=== PATIENT | male | born 1980 | race Caucasian/White ===

== ENCOUNTER 2019-08-26 06:40 | Outpatient (CLI) | payer OTHER, SELFPAY ==
--- NOTE | ~2019-08-26 | MR_ITS ---
EXAMINATION: MR ankle LT wo con DATE: 08/26/2019 08:00 INDICATION: Peroneal tendinitis with pop along the lateral left ankle 2 months prior. TECHNIQUE: Magnetic resonance imaging (MRI) of the left ankle was performed without intravenous contr ast. Sequences included sagittal, coronal, and axial proton-density weighted fast spin echo without a nd with fat saturation. COMPARISON: None. FINDINGS: Medial ankle ligaments: Deep and superficial deltoid ligaments as well as the spring ligament are normal. Lateral ankle ligaments: The anterior and posterior inferior tibiofibular ligaments are normal. The anterior talofibular, calc aneofibular and posterior talofibular ligaments are normal. Tendons: Achilles tendon is normal. Small amount of fluid in the peroneal tendon sheath consistent with mild t enosynovitis. The peroneus longus tendon is normal. Moderate tendinopathy and longitudinal split tear ing of the peroneus brevis tendon beginning at the level of the retromalleolar groove and extending t o within 3 cm the fifth metatarsal insertion. The tibialis anterior and extensor hallucis longus and extensor digitorum longus tendons are normal. The flexor hallucis longus tendon is normal. Small amou nt of fluid consistent mild tenosynovitis surrounding the normal tibialis posterior and flexor digito rum longus tendons. Plantar fascia: Plantar aponeurosis is normal. Bones/other: Bone alignment is normal. Normal marrow signal throughout. No fracture or pathologic marrow replacing process. Joint spaces are relatively preserved. Fluid: Physiologic amount of fluid in the joint spaces. IMPRESSION: 1. Peroneal tenosynovitis with moderate tendinopathy and longitudinal split tearing of the peroneus b maegan tendon 2. Mild tibialis posterior and flexor digitorum longus tenosynovitis with normal-appearing tendons. Reviewed, dictated and finalized at location A. IMPRESSION: 1. Peroneal tenosynovitis with moderate tendinopathy and longitudinal split tea ring of the peroneus brevis tendon 2. Mild tibialis posterior and flexor digitorum longus tenosynovitis with isai l-appearing tendons.
== END 2019-08-26 06:41 | disposition home or self-care (01) ==
PROVIDERS: PCP Family Medicine; Visit Provider Podiatrist Foot & Ankle Surgery
DX: S86.312A Strain of muscle(s) and tendon(s) of peroneal muscle group at lower leg level, left leg, initial encounter (principal)
CPT/HCPCS: 73721

== ENCOUNTER 2024-05-17 18:00 | Emergency (ER) | payer BC, SELFPAY ==
[2024-05-17] VITALS (8 sets, daily range): BP systolic 125–129; BP diastolic 85–95; PULSE 65–88; RESP 17–24; TEMP 36.8–37.8; O2SAT 95–99
--- NOTE | ~2024-05-17 | CT_ITS ---
EXAMINATION: CT brain & sinus wo con DATE: 05/17/2024 20:26 INDICATION: headache, recent dental infection . TECHNIQUE: Computed tomography (CT) of the head and sinuses was performed without intravenous contras t. The mA was adjusted according to patient size. Iterative reconstruction technique was employed. Th e dose-length product was 832.33 mGy-cm. COMPARISON: None. FINDINGS: No acute intracranial hemorrhage or extra-axial fluid collection. No hydrocephalus, mass, or herniation. No acute ischemic infarct. Unremarkable dural venous sinus attenuation. No acute osseous abnormality. Sinuses: There is normal development and pneumatization of the paranasal sinuses. Left middle turbinate fernanda bullosa. Rightward bowing of the osseous nasal septum with a small osseous spur directed towards the right. Trace bilateral mastoid fluid. Small polyp in the left inferior frontal sinus. Mild mucosal t hickening in the bilateral ethmoid sinuses and maxillary sinuses. The bilateral ostiomeatal complexes are patent. Visualized soft tissues are unremarkable. Dental caries and periodontal disease. IMPRESSION: No acute intracranial process. Mucoperiosteal sinus disease. Dental caries and periodontal disease. Reviewed, dictated and finalized at location K. IC SCHEDULER
--- NOTE | ~2024-05-17 | XR_ITS ---
EXAMINATION: XR chest 1V portable Exam Date/Time: 05/17/2024 19:45 COMPUTER REPAIR INSTRUCTOR HISTORY: fever, myalgias Comparison: 10/24/2006, 10/23/2006. RESULT: Lines, tubes, and devices: None. Lungs and pleura: Mild diffuse reticulonodular opacities with cuffing. Cardiomediastinal silhouette: Stable. Other: No acute osseous or upper abdominal finding. IMPRESSION: Pulmonary opacities may represent bronchiolitis. Consider radiographic follow-up to ensure resolution . Reviewed, dictated and finalized at location K. UTER REPAIR INSTRUCTOR IMPRESSION: Pulmonary opacities may represent bronchiolitis. Consider radiographic follow-u p to ensure resolution.
--- NOTE | ~2024-05-17 | CT_ITS ---
EXAMINATION: CT abdomen pelvis w con DATE: 05/17/2024 20:54 INDICATION: transaminitis, (borderline)febrile TECHNIQUE: Computed tomography (CT) of the abdomen and pelvis was performed with 100 mL Omnipaque-350 intravenous contrast. Automated exposure control and iterative reconstruction technique were employe d. The dose-length product was 549.05 mGy-cm. COMPARISON: None. FINDINGS: Lower thorax: Bibasilar atelectasis. Liver: Normal. Biliary/Gallbladder: Gallbladder is normal. No bile duct dilation. Pancreas: No mass or duct dilation. Spleen: Normal. Adrenals:No mass. Kidneys: No suspicious mass, obstructing stone, or hydronephrosis. GI tract: Moderate distal esophageal and gastric wall edema. No small or large bowel dilation. Normal appendix. Mesentery/Peritoneum: No ascites, mass, or free air. Retroperitoneum: No mass. Pelvis: Pelvic organs are within normal limits. Soft Tissues: Small uncomplicated fat-containing umbilical hernia. Bones: No acute osseous finding. IMPRESSION: Moderate esophagitis/gastritis. Reviewed, dictated and finalized at location K. LING DRUM OPERATOR
--- OUTSIDE RECORDS SUMMARY | 2024-05-17 18:02 | XMS_ITS | Clinical Summary ---
Author Organization [facility] Address [address] [place] [address] Care Team Providers Care School Attendance Secretary Name Role Phone Unavailable Primary Care Provider Unavailabl e Immunizations Immunization Administration Dates Next Due Covid-19 Vaccine, Vector-nr, Rs-ad26, Pf, 0.5 Ml ([facility]) 12/24/2020 Social History Tobacco Use Types Packs/Day Years Used Date Smoking Tobacco: Never Assessed Sex and Gender Information Value Date Recorded Sex Assigned at Not on file Legal Sex Male 3:02 PM CDT Gender Identity Not on file Sexual Orientation Not on file Plan of Treatment Health Maintenance Due Date Last Done Comments Hepatitis C Virus (HCV) Screening 1980 TdaP Immunization 1980 Hepatitis B Immunization (1 of 3 - 19+ 3-dose series) 07/15/1999 Influenza Immunization (#1) 2023 SARS-COV-2 Immunization (2 - 2023- season) 2023 12/24/2020 Respiratory Syncytial Virus (RSV) Immunization (Adult) (1 - 1-dose 75+ series) 07/15/2055 Meningococcal Immunization (ACWY) Aged Out No longer eligible based on patient's age to complete this topic Pneumococcal Immunization Combined Aged Out No longer eligible based on patient's age to complete this topic Rotavirus Immunization Aged Out No lo nger eligible based on patient's age to complete this topic
[2024-05-17 19:02] LABS: Influenza A QL RT-PCR Negative (Negative); Influenza B QL RT-PCR Negative (Negative); RSV RNA, RT-PCR Negative (Negative); SARS-CoV-2 RNA PCR Negative (Negative)
--- NOTE | 2024-05-17 19:03 | ED_ITS ---
HPI - General Adult General Chief complaint: Unspecified Stated complaint: migraines, aches, kidney pain Time Seen by Provider: 05/17/24 18:57 Source: patient and family Mode of arrival: ambulatory Limitations: no limitations History of Present Illness HPI narrative: Patient presents with report of headache, dental pain, and self-reported kidney pain. States he has been having low back pain and he believes this is due to the number of medications he is taking without eating. He has been alternating Tylenol and 800 mg ibuprofen every 5 hours as well as taking amoxicillin 2-3 times per day. The antibiotic was prescribed on either Sunday or Sunday by his dentist and is a 1 week course with plans for him to return to the dentist after treating dental infection for further intervention/procedure. He last took a dose of Tylenol approximately 6 hours ago. He states his brain feels hot , like it is on fire. He is also having left ear pain. Lives with his mother in law and neither of whom are sick. Denies any underlying kidney dysfunction. He is having left-sided maxillary facial pain. His headache is associated with photophobia and phonophobia. He denies any nasal congestion or rhinorrhea. He states he has been altered but describes it as feeling confused when the intense pain takes over. States he has pain the home his bilateral eyes. Denies any rash. Denies any cough, shortness of breath, or diarrhea. His last bowel movement was 4 days ago. He states he had been vomiting but states this is no longer an issue and he does not feel nauseated and rather attributed the emesis to drinking cold water too fast. He states the headache feels like a vice and describes it as being around the top of his head bilaterally as if something fall on it but he denies any trauma or anticoagulation. He also states that it is around his temples and at times around the base of his skull. Related Data Allergies Allergy/AdvReac Type Severity Reaction Status Date / Time No Known Allergies Allergy Unknown Verified 05/17/24 18:15 [facility] Social History Social History (Updated 05/17/24 @ 19:22 by Gladys Lomeli MD) Alcohol intake: never Other substance usage details: Denies IV drug use Living arrangements: with family Additional living arrangements comments: and mother in law Exam 2 Narrative: GENERAL: well-nourished, and in no acute distress. HEAD: Normocephalic, atraumatic. EYES: Non injected, non icteric. PERRL, approximately 3mm bilaterally ENT: Nares clear, no rhinorrhea or epistaxis. Right TM easily visualized. Left TM easily visualized and normal although there is some mild erythema in the external auditory canal. Patient does appear to have dental infection, left upper gums. Mild tenderness to percussion. NECK: Supple. No meningismus. Patient is able to flex and extend neck as well as perform a [id number] motions with full range of motion. CHEST: Speaking in full sentences. No respiratory distress. HEART: Regular rate and rhythm. ABDOMEN: Soft, nondistended. : CVA tenderness bilaterally though R > L. EXTREMITIES: Normal range of motion. No lower extremity edema. Moves all extremities. SKIN: Patient feels Warm to the touch, dry, no rash on exposed skin (and none on legs when they are exposed). NEURO: No focal deficits. Alert and oriented x3. Speaks clearly without aphasia or dysarthria. No abnormal movements appreciated. Sensation intact to gross touch throughout. PSYCH: Normal mood and affect. Course Vital Signs Vital signs: Vital Signs Temperature 100.1 F H 05/17/24 18:08 Pulse Rate 88 05/17/24 18:08 Respiratory Rate 20 05/17/24 18:08 Blood Pressure 127/85 05/17/24 18:08 Pulse Oximetry 98 05/17/24 18:08 Temperature 98.2 F 05/17/24 20:30 Pulse Rate 65 05/17/24 22:27 Respiratory Rate 20 05/17/24 22:27 Blood Pressure 129/85 05/17/24 22:27 Pulse Oximetry 95 05/17/24 22:27 Medical Decision Making [facility] Narrative Medical decision making narrative: Patient presents with a variety of symptoms including dental pain, headache, and no back pain which he describes as kidney pain. Currently on antibiotics (amoxicillin 500mg started 05/13/24) for a dental infection with plans to follow- up with dentist this week. In the emergency department he is borderline febrile otherwise with vital signs within normal limits. The extensive neurological examination is non-focal, there are no high-risk features on history, vital signs are stable, and the patient is non toxic appearing although appears uncomfortable and is borderline febrile. Many of patient's symptoms sound viral although his swab is negative. Given his recent dental infection, we will obtain CT imaging to see if there is extension, possible abscess. Unlikely SAH: given duration Unlikely subdural/epidural hematoma: no history of trauma, no anticoagulation Considered meningitis given he is borderline febrile and with mild photophobia but patient without meningismus , has full range of motion of neck, and is not altered or with a rash thus this is considered less likely. Unlikely temporal arteritis: pt <60 years old. Unlikely acute angle glaucoma: PERRL, no nausea Unlikely carbon monoxide poisoning: no other house members with similar symptoms Patient initially had the given acetaminophen and 1 L IV fluids will await CT imaging and obtain additional labs including urine and basic blood work. Transaminitis with no prior for comparison including hyperbilirubinemia. US not available at this time.Will add on lipase and obtain CT abd/pelvis. Brain CT shows mucoperiosteal disease and dental caries but otherwise no intracranial hemorrhage. The patient's headache was treated symptomatically with ketorolac, benadryl, compazine; Patient reassessed at approximately 9:25 p.m. in states he is feeling better. He has not yet been able to provide urine because he states he has stage fright. Encouraged him to try again and that I am concerned about a possible urinary tract infection/pyelonephritis given questionable CVA tenderness but suspect it might just represent general myalgias. No signs of infection on urinalysis. Given presence of sinusitis and time course of symptoms, will prescribe Augmentin and nasal decongestant as well as hypertonic saline nasal wash. Also provided prescriptions for OTC analgesics. He will be discharged with strict return precautions and instructions to follow up with their PCP in the next 1-2 days and keep their upcoming dental appointment. Vital Signs Vital Signs: Vital Signs Temperature 100.1 F H 05/17/24 18:08 Pulse Rate 88 05/17/24 18:08 Respiratory Rate 20 05/17/24 18:08 Blood Pressure 127/85 05/17/24 18:08 Pulse Oximetry 98 05/17/24 18:08 Temperature 98.2 F 05/17/24 20:30 Pulse Rate 65 05/17/24 22:27 Respiratory Rate 20 05/17/24 22:27 Blood Pressure 129/85 05/17/24 22:27 Pulse Oximetry 95 05/17/24 22:27 Lab Data Lab results reviewed: Yes I reviewed the patient's lab results. Lab results narrative: No leukocytosis, normal renal function 05/17/24 19:41 05/17/24 19:41 Labs: Lab Results 05/17/24 05/17/24 05/17/24 Range/Units 18:20 19:41 21:45 WBC 7.3 (4.5-10.0) K/mm3 RBC 4.90 (4.6-6.20) M/mm3 Hgb 16.7 (14.0-18.0) g/dL Hct 44.9 (42.0-52.0) % MCV 91.6 (80-100) fl MCH 34.1 H (26-34) pg MCHC 37.2 H (32-36) g/dl RDW 11.8 (11.5-14.5) % Plt Count 151 (150-375) k/mm3 MPV 9.8 (7.4-10.4) fl Immature Gran % (Auto) 0.3 (0-0.5) % Neut % (Auto) 57.2 (45.5-73.1) % Lymph % (Auto) 22.6 (18.3-44.2) % Flagler % (Auto) 18.8 H (2.6-8.5) % Eos % (Auto) 0.3 (0-4.4) % Baso % (Auto) 0.8 (0.2-1.2) % Lymph # (Auto) 1.64 (0.9-3.2) K/mm3 Flagler # (Auto) 1.4 H (0.1-0.6) K/mm3 Eos # (Auto) 0.0 (0-0.3) K/mm3 Baso # (Auto) 0.1 (0.0-0.1) K/mm3 Abs Immat Gran (auto) 0.02 (0.00-0.031) K/mm3 Absolute Neuts (auto) 4.2 (1.3-6.7) K/mm3 Absolute Nucleated RBC 0.000 (0.0-0.012) K/mm3 Nucleated RBC % 0.0 (0.0-0.2) % Sodium 133 L (137-145) mmol/L Potassium 3.9 (3.4-5.0) mmol/L Chloride 98 (98-107) mmol/L Carbon Dioxide 28 (22-30) mmol/L Anion Gap 7 (4-12) mmol/L BUN 12 (9-20) mg/dL Creatinine 0.83 (0.7-1.3) mg/dL Estim Creat Clear Calc 100 ml/min Estimated GFR > 60 (59 - ) Glucose 104 (65-110) mg/dL Calcium 8.4 (8.4-10.2) mg/dL Magnesium 2.1 (1.6-2.3) mg/dL Total Bilirubin 2.3 H (0.2-1.3) mg/dL AST 122 H (17-59) U/L ALT 219 H (6-50) U/L Alkaline Phosphatase 132 H (38-126) U/L Total Protein 7.0 (6.3-8.2) g/dL Albumin 4.1 (3.5-5.1) g/dL Lipase 162 (23-300) U/L Urine Color Dark yellow (Yellow) Urine Appearance Clear (Clear) Urine pH 6.0 (5.0-9.0) Ur Specific Rozet > 1.045 H (1.001-1.035) Urine Protein 2+ H (Negative) mg/dL Urine Glucose (UA) Negative (Negative) mg/dL Urine Ketones 1+ H (Negative) mg/dL Ur Blood (Man) Negative (Negative) Urine Nitrate Negative (Negative) Urine Bilirubin 2+ H (Negative) Urine Urobilinogen 1.0 (<2.0) mg/dL Leukocyte Esterase Rfl Negative (Negative) LATRELL/UL Urine RBC 0-2 (0-2) /hpf Urine WBC 0-5 (0-3) /hpf Ur Squamous Epith Cells None seen (Few) /hpf Urine Bacteria None seen /hpf Urine Casts 0-2 Influenza A (RT-PCR) Negative (Negative) Influenza B (RT-PCR) Negative (Negative) RSV (RT-PCR) Negative (Negative) SARS-CoV-2 RNA (RT-PCR) Negative (Negative) Imaging Data Radiologist's impression: Impressions Head/Sinuses CT 05/17/24 20:28 IMPRESSION: No acute intracranial process. Mucoperiosteal sinus disease. Dental caries and periodontal disease. Chest X-Ray 05/17/24 20:34 IMPRESSION: Pulmonary opacities may represent bronchiolitis. Consider radiographic follow-up to ensure resolution. Abdomen/Pelvis CT 05/17/24 20:55 IMPRESSION: Moderate esophagitis/gastritis. Discharge Plan Discharge Clinical Impression: Sinusitis, Dental caries, Bronchiolitis, Esophagitis with gastritis, Myalgia, Pain due to dental caries, Cephalgia, Transaminitis Patient Disposition: Home, Self-Care Condition: Stable Instructions: Antibiotic Form, Bronchiolitis (ED), Gastritis (ED), Dental Abscess (ED), Sinusitis (ED), Musculoskeletal Pain (ED), Mouth Care (ED), General Headache (ED), Esophagitis (ED) Additional Instructions: Many of your symptoms sound related to the dental pain and infection which also appears to have become a sinus infection based on your CT scan. Use the nasal decongestant for no more than 3 days which can help with some of the inflammation that is also causing the symptoms in your ear. Acetaminophen/Tylenol (maximum 4000 mg per day) is safe to take with NSAIDs (ibuprofen/Motrin) for pain relief. Mechanically irrigate her nasal passages with the buffered hypertonic nasal wash solution prescribed. Will broaden your antibiotics to an amoxicillin-clavanulate combination, take this instead of just the amoxicillin alone. Follow-up with your primary care physician. Keep your upcoming appointment on Sunday with your dentist. Return to the emergency department with any new or worsening symptoms. Patient Language: Pakistani Prescriptions: New oxymetazoline [12 Hour Nasal Relief [place]] 0.05 % spray,non-aerosol 2 spray intranasal Q12H PRN (Reason: nasal congestion) 3 Days Qty: 15 0RF acetaminophen 500 mg capsule 1,000 mg PO Q6H PRN (Reason: pain) Qty: 30 0RF ibuprofen 600 mg tablet 600 mg PO TID PRN (Reason: pain) Qty: 30 0RF hypertonic nasal wash Solution 1 drp intranasal 4-6XD PRN (Reason: nasal congestion) Qty: 237 0RF amoxicillin-pot clavulanate 875-125 mg tablet 1 tablet PO Q12H 10 Days Qty: 20 0RF Follow-up/Referrals: Elisha,Laila Morales MD [Non-Staff] - Stand Alone Forms: Work/School Release IP Time of Disposition: 22:12
--- OUTSIDE RECORDS SUMMARY | 2024-05-17 19:25 | XMS_ITS | Clinical Summary ---
Author Organization [facility] Address [address] [place] [address] Care Team Providers Care Manager Msw Name Role Phone Unavailable Primary Care Provider Unavailabl e Allergies No known active allergies Medications No known medications Encounters Date Type Department Care Team Description 05/12/2024 5:22 PM AGRICULTURE INTERN - 05/12/2024 5:23 PM AGRICULTURE INTERN Emergency [facility] [place] [address] Clara Greer PA Flu Like Symptoms Discharge Disposition: Left Against Medical Advice 05/12/2024 Travel from Last 3 Months Social History Tobacco Use Types Packs/Day Years Used Date Smoking Tobacco: Never Assessed Sex and Gender Information Value Date Recorded Sex Assigned at Male 05/12/2024 5:19 PM AGRICULTURE INTERN Legal Sex Male 3:39 PM AGRICULTURE INTERN Gender Identity Not on file Sexual Orientation Not on file Last Filed Vital Signs Vital Sign Reading Time Taken Comments Blood Pressure 130/95 05/12/2024 4:21 PM AGRICULTURE INTERN Pulse 86 05/12/2024 4:21 PM AGRICULTURE INTERN Temperature 37.3 C (99.1 F) 05/12/2024 4:21 PM AGRICULTURE INTERN Respiratory Rate 18 05/12/2024 4:21 PM AGRICULTURE INTERN Oxygen Saturation 98% 05/12/2024 4:21 PM AGRICULTURE INTERN Inhaled Oxygen Concentration - - Weight 81.6 kg (180 lb) 05/12/2024 4:21 PM AGRICULTURE INTERN Height 175.3 cm (5' 9 ) 05/12/2024 4:21 PM AGRICULTURE INTERN Body Mass Index 26.58 05/12/2024 4:21 PM AGRICULTURE INTERN Plan of Treatment Health Maintenance Due Date Last Done Comments Annual Physical 07/15/1983 Hepatitis C 1998 DTaP, Tdap and Td Vaccines ( 1 - Tdap) 07/15/1999 Hepatitis B Vaccines (1 of 3 - 19+ 3-dose series) 07/15/1999 COVID-19 Vaccine (2023-2 5 season) 2023 12/24/2020 Influenza Adult (#1) 2024 HPV Vaccines Aged Out No longer eligi ble based on patient's age to complete this topic Meningococcal B Vaccine Aged Out No l onger eligible based on patient's age to complete this topic Meningococcal Vaccine Aged Out No anisha gregor eligible based on patient's age to complete this topic Pneumococcal Vaccine: Pediat rics (0 to 5 Years) and At-Risk Patients (6 to 64 Years) Aged Out No longer eligi ble based on patient's age to complete this topic RSV Immunizations Under 20 Months Aged Out No longer eligible based on patient's age to complete this topic Procedures Procedure Name Priority Date/Time Associated Diagnosis Comments CORONAVIRUS (COVID 19) STAT 05/12/2024 4:31 PM AGRICULTURE INTERN INFLUENZA A & B STAT 05/12/2024 4:31 PM AGRICULTURE INTERN from Last 3 Months Results * CORONAVIRUS (COVID 19) (05/12/2024 4:31 PM AGRICULTURE INTERN) CORONAVIRUS SARS COV 2 RNA NEGATIVE NEGATIVE 05/12/2024 5:13 PM AGRICULTURE INTERN [facility] Comment: NEGATIVE RESULTS DO NOT RULE OUT COVID 19 AND SHOULD NOT BE USED THE SOLE BASIS FOR TREATMENT OR PATIENT MANAGEMENT DECISIONS, INCLUDING INFECTION CONTROL DECISIONS. NEGATIVE RESULTS SHOULD BE CONSIDERED IN THE CONTEXT OF A PATIENT'S RECENT EXPOSURES, HISTORY AND THE PRESENCE OF CLINICAL SIGNS AND SYMPTOMS CONSISTENT WITH COVID 19. THE ID NOW COVID-19 2.0 TEST HAS BEEN AUTHORIZED BY THE FDA UNDER EAU FOR USE BY AUTHORIZED LABORATORIES. PERFORMED BY NUCLEIC ACID AMPLIFICATION FOR MOLECULAR QUALITATIVE DETECTION OF SARS-COV-2. SPECIMEN TYPE NASAL 05/12/2024 4:31 PM AGRICULTURE INTERN [facility] NASAL STRUCTURE / Unknown 05/12/2024 4:31 PM AGRICULTURE INTERN Clara ROLAND MICROBIOLOGY - GENERAL ORDERA BLES Final Result [facility] [address] [place] [address], [place] [phone] * INFLUENZA A & B (05/12/2024 4:31 PM AGRICULTURE INTERN) SPECIMEN TYPE NASAL 05/12/2024 4:39 PM AGRICULTURE INTERN [facility] INFLUENZA A NEGATIVE NEGATIVE 05/12/2024 5:12 PM AGRICULTURE INTERN [facility] INFLUENZA B NEGATIVE NEGATIVE 05/12/2024 5:12 PM AGRICULTURE INTERN [facility] Comment: Interpretation: Negative for Influenza A and B. A negative result does not exclude influenza virus infection. If influenza is circulating in your community, a diagnosis of influenza should be considered based on a patient's clinical presentation and empiric antiviral treatment should be considered, if indicated. If more conclusive testing is needed for hospitalized inpatients, follow-up confirmatory testing with RT-PCR requires a separate order. NASOPHARYNGEAL SWAB / Unknown 05/12/2024 4:31 PM AGRICULTURE INTERN us Clara ROLAND [facility]BI[employer] - GENERAL ORDERA BLES Final Result [facility] [address] [place] [id number], [place] [phone] from Last 3 Months Insurance [facility] [employer]
--- OUTSIDE RECORDS SUMMARY | 2024-05-17 19:25 | XMS_ITS | Clinical Summary ---
Author Organization [facility] Address [address] [place] [address] Care Team Providers Care Basket Mender Name Role Phone Unavailable Primary Care Provider Unavailabl e Immunizations Immunization Administration Dates Next Due Covid-19 Vaccine, Vector-nr, Rs-ad26, Pf, 0.5 Ml ([employer]) 12/24/2020 Social History Tobacco Use Types Packs/Day [...]
--- NOTE | 2024-05-17 19:35 | PC.NURSE ---
Report received from OSCAR Zapata. Assumed care of patient at this time.
[2024-05-17] MEDS: ACETAMINOPHEN 500 MG TABLET 1000 MG PO (19:42)
[2024-05-17] MEDS: SODIUM CHLORIDE 0.9% IV 1,000 ML 999 ML IV CONT (19:42)
[2024-05-17 19:51] LABS: Basophils Absolute Auto 0.1 K/mm3 (0.0-0.1); Basophils Percent Auto 0.8 % (0.2-1.2); Eosinophils Percent Auto 0.3 % (0-4.4); Hematocrit 44.9 % (42.0-52.0); Hemoglobin 16.7 g/dL (14.0-18.0); Immature Granulocyte Absolute 0.02 K/mm3 (0.00-0.031); Immature Granulocyte Percent A 0.3 % (0-0.5); Lymphocytes Absolute Auto 1.64 K/mm3 (0.9-3.2); Lymphocytes Percent Auto 22.6 % (18.3-44.2); Mean Corpuscular HGB Conc 37.2 g/dl (32-36); Mean Corpuscular Hemoglobin 34.1 pg (26-34); Mean Corpuscular Volume 91.6 fl (80-100); Mean Platelet Volume 9.8 fl (7.4-10.4); Monocytes Absolute Auto 1.4 K/mm3 (0.1-0.6); Monocytes Percent Auto 18.8 % (2.6-8.5); Neutrophils Absolute Auto 4.2 K/mm3 (1.3-6.7); Neutrophils Percent Auto 57.2 % (45.5-73.1); Platelet Count Result 151 k/mm3 (150-375); Red Cell Distribution Width 11.8 % (11.5-14.5); White Blood Count 7.3 K/mm3 (4.5-10.0)
[2024-05-17 20:02] LABS: Alanine Aminotransferase 219 U/L (6-50); Albumin Level 4.1 g/dL (3.5-5.1); Alkaline Phosphatase 132 U/L (38-126); Anion Gap 7 mmol/L (4-12); Aspartate Amino Transferase 122 U/L (17-59); Bilirubin,Total 2.3 mg/dL (0.2-1.3); Blood Urea Nitrogen 12 mg/dL (9-20); Calcium 8.4 mg/dL (8.4-10.2); Carbon Dioxide 28 mmol/L (22-30); Chloride 98 mmol/L (98-107); Estimated CRCL calculation 100 ml/min; Estimated Glomerular Filt Rate > 60; Glucose 104 mg/dL (65-110); Potassium 3.9 mmol/L (3.4-5.0); Sodium 133 mmol/L (137-145)
[2024-05-17] MEDS: PROCHLORPERAZINE EDISYLATE 10 MG/2 ML VIAL IV PUSH (21:02)
[2024-05-17] MEDS: KETOROLAC 15 MG/ML VIAL (*BKC) IV PUSH (21:03)
[2024-05-17] MEDS: diphenhydrAMINE HCl INJ 50 MG/ML VIAL 25 MG IV PUSH (21:03)
[2024-05-17 21:06] LABS: Lipase 162 U/L (23-300); Magnesium 2.1 mg/dL (1.6-2.3)
[2024-05-17] MEDS: FAMOTIDINE 10 MG TABLET PO (21:44)
[2024-05-17 21:58] LABS: Add Urine Microscopic? YES; Appearance Urine Clear (Clear); Bacteria Urine None Seen /hpf; Bilirubin Urine 2+ (Negative); Blood Urine Negative (Negative); Color Urine Dark Yellow (Yellow); Glucose Urine UA Negative (Negative); Ketones Urine 1+ mg/dL (Negative); Leukocyte Esterase Ur Negative LEU/UL (Negative); Nitrate Urine Negative (Negative); Non Pathogenic Casts 0-2; Protein Urine 2+ mg/dL (Negative); RBC Urine 0-2 /hpf (0-2); Specific Grav Ur > 1.045 (1.001-1.035); Squamous Epithelial Cell Urine None Seen /hpf (Few); WBC Urine 0-5 /hpf (0-3)
== END 2024-05-17 22:30 | disposition home or self-care (01) ==
PROVIDERS: Emergency Medicine; Emergency Provider Student in an Organized Health Care Education/Training Program; PCP Nurse Practitioner Family
DX: K02.9 Dental caries, unspecified (principal); J32.9 Chronic sinusitis, unspecified; K20.90 Esophagitis, unspecified without bleeding; K29.70 Gastritis, unspecified, without bleeding; R74.01 Elevation of levels of liver transaminase levels; M79.10 Myalgia, unspecified site; R51.9 Headache, unspecified; Z20.822 Contact with and (suspected) exposure to COVID-19
CPT/HCPCS: 36415; 70450; 70486; 71045; 74177; 80053; 81001; 83690; 83735; 85025; 87637; 96361; 96374; 96375; 99284; A9270; J0780; J1200; J1885; J7030; Q9967